=== PATIENT | female | born 1980 | race Two or more races ===

== ENCOUNTER 2018-05-15 02:47 | Emergency (ER) | payer SELFPAY ==
[~2018-05-15] VITALS: Ht 167.6 cm; Wt 99.8 kg
[2018-05-15 03:52] LABS: Urine WBC None Seen /hpf (0 - 5)
[2018-05-15 04:10] LABS: Basophils # (auto) 0 uL; Basophils % (auto) 0.3 % (0.0-2.0); Eosinophils # (auto) 0.1 uL; Eosinophils % (auto) 1.5 % (0.0-7.0); Hematocrit 36.6 % (36.0-46.0); Hemoglobin 11.9 g/dL (12.2-16.2); Lymphocytes # (auto) 1.9 uL; Mean Corpuscular Hemoglobin 27.7 pg (28.0-32.0); Mean Corpuscular Hgb Conc. 32.4 g/dL (32.0-36.0); Mean Corpuscular Volume 85.4 fL (80.0-100.0); Monocytes # (auto) 0.6 uL; Neutrophils # (auto) 3.9 uL; Neutrophils % (auto) 60.2 % (37.0-80.0); Nucleated Red Blood Cells % 0.1 %; Platelet Count (auto) 289 10^3/uL (140-450); Red Blood Cells 4.29 10^6/uL (4.0-5.20); Red Cell Distribution Width 14.8 % (11.8-14.3); White Blood Cell 6.5 10^3/uL (4.4-10.8)
[2018-05-15 04:28] LABS: Albumin 3.2 g/dL (3.4-5.0); BUN/Creatinine Ratio 13.1; Calcium 7.6 mg/dL (8.5-10.1); Potassium 3.3 mmol/L (3.5-5.1)
[2018-05-15 04:28] LABS: Amphetamine Screen, Urine NEGATIVE (NEGATIVE); Barbiturate Scree,Urine NEGATIVE (NEGATIVE); Benzodiazephine Screen, Urine NEGATIVE (NEGATIVE); Cannabinoid Screen, Urine NEGATIVE (NEGATIVE); Cocaine Screen, Urine NEGATIVE (NEGATIVE); Opiate Scree,Urine NEGATIVE (NEGATIVE); Phencyclidine Screen, Urine NEGATIVE (NEGATIVE)
[2018-05-15 04:29] LABS: Urine Bacteria NONE SEEN /hpf (None Seen); Urine Blood Negative /uL (Negative); Urine Specific Gravity 1.002 (1.001-1.035)
[2018-05-15 04:31] LABS: Bilirubin, Total 0.1 mg/dL (0.2-1.0); Total Protein 7.1 g/dL (6.4-8.2)
[2018-05-15 04:51] LABS: Urine Pregnacy Test Negative (Negative)
[2018-05-15 09:16] VITALS: BP 100/59
[2018-05-15] MEDS ORDERED: SODIUM CHLORIDE 0.9% 1,000 ML IV ONE ×3 (10:37→11:40)
[2018-05-15] MEDS ORDERED: THIAMINE 100mg/ml INJ (200mg/2ml VIAL) IV ONE (10:45)
[2018-05-15] MEDS ORDERED: MORPHINE SULFATE 4 MG/ML SYR/VIAL IV PRN (11:00)
[2018-05-15] MEDS ORDERED: ACETAMINOPHEN 500 MG TAB PO PRN (11:00)
[2018-05-15] MEDS ORDERED: D5W/SOD CHL 0.45%/KCL 40MEQ 1,000 ML IV ONE ×2 (11:00→18:20)
[2018-05-15] MEDS ORDERED: MULTIPLE VITAMIN TAB PO ONE (11:00)
[2018-05-15] MEDS ORDERED: THIAMINE HCL 100 MG TAB PO ONE (11:00)
[2018-05-15] MEDS ORDERED: NITROGLYCERIN 0.4 MG SL TAB SL PRN (11:00)
== END 2018-05-15 11:37 | disposition left against medical advice (07) ==
LOC: ER 02:47 → EDBD 02:47 → ER 11:37
DX: G92 Toxic encephalopathy (principal); F10.920 Alcohol use, unspecified with intoxication, uncomplicated; Y90.0 Blood alcohol level of less than 20 mg/100 ml
CPT/HCPCS: 36415; 70450; 80053; 80307; 80320; 81001; 81025; 85025; 99284; J7030